=== PATIENT | male | born 1970 | race Two or more races ===

== ENCOUNTER 2016-10-24 09:33 | Emergency (ER) | payer MEDICAID ==
[~2016-10-24 09:33] MED LIST: B6 PO; CARAFATE1 G2 PO; OMEPRAZOLE40 M2 PO; PRILOSEC OTC20 M1 PO; RIFADIN300 M1 PO; ZOFRAN4 M2 PO; [UNRECOGNIZED DRUG - OTHER] PO
[2016-10-24] MEDS ORDERED: HYDROCODON-ACE1 EA16 PO (09:46)
[2016-10-24] MEDS ORDERED: ENDOCET 5-3251 EACH PO (09:47)
[2016-10-24] MEDS ORDERED: PERCOCET 5-3251 EACH PO (13:36)
[2016-10-24] MEDS ORDERED: IBUPROFEN400 M1 PO (13:37)
== END 2016-10-24 13:57 ==
LOC: EDMED 09:33
DX: G89.18 Other acute postprocedural pain (principal); R07.0 Pain in throat; Z90.89 Acquired absence of other organs
CPT/HCPCS: J1170; J2405; J7030